=== PATIENT | male | born 1985 | race Caucasian/White ===

== ENCOUNTER → 2019-07-09 | Outpatient (CLI) | payer OTHER ==
--- NOTE | 2019-07-09 12:33 | RADIOLOGY REPORT (SQ) ---
EXAM DESCRIPTION: CT HEAD WITHOUT COMPLETED DATE/TIME: 07/09/2019 11:29 am REASON FOR STUDY: (G43.819)OTHER MIGRAINE, INTRACTABLE, WITHOUT STATUS MIGRAINOSUS G43.819 OTHER DC GRAINE, INTRACTABLE, WITHOUT STATUS MIGRAINO COMPARISON: None. TECHNIQUE: Axial images acquired through the brain without intravenous contrast. Images reviewed wi th bone, brain and subdural windows. Images stored on PACS. All CT scanners at this facility use dose modulation, iterative reconstruction, and/or weight based d osing when appropriate to reduce radiation dose to as low as reasonably achievable (ALARA). [facility]: Dose Right [facility]: CareDose [facility]: Dose Right [facility]: Teradose 4D [facility]: Pixplit RADIATION DOSE: CT Rad equipment meets quality standard of care and radiation dose reduction techniq ues were employed. CTDIvol: 48.6 mGy. DLP: 953 mGy-cm. mGy. LIMITATIONS: None. FINDINGS: VENTRICLES: Normal size and contour. CEREBRUM: There is a focal area of decreased attenuation right occipital lobe which could represent encephalomalacia. No hemorrhage. No midline shift. No evidence for acute infarction. Normal gresham/w eric matter differentiation. No areas of low density in the white matter. CEREBELLUM: No masses. No hemorrhage. No alteration of density. No evidence for acute infarction. EXTRAAXIAL SPACES: No fluid collections. No masses. ORBITS AND GLOBE: No intra- or extraconal masses. Normal contour of globe without masses. 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 PARANASAL SINUSES: Retention cyst or mucosal thickening floor both maxillary sinuses. . SOFT TISSUES: No mass or hematoma. OTHER: No other significant finding. IMPRESSION: FOCAL AREA OF ENCEPHALOMALACIA RIGHT OCCIPITAL LOBE. CHANGES OF PREVIOUS CRANIOTOMY RIG HT PARIETAL REGION WITH RADIOPAQUE TUBE OF OVER RIGHT PARIETAL CONVEXITY. OTHERWISE, NORMAL BRAIN CT WITHOUT CONTRAST. EVIDENCE OF ACUTE STROKE: NO. COMMENT: Quality ID # [id number]: Final reports with documentation of one or more dose reduction techniques (e.g., Automated exposure control, adjustment of the mA and/or kV according to patient size, use of iterative reconstruction technique) TECHNICAL DOCUMENTATION: JOB ID: [id number] SC-[id number] [employer]- All Rights Reserved Reading location - IP/workstation name: [email or web address]
== END ==
LOC: RAD 11:02
PROVIDERS: ATTEND Psychiatry & Neurology Neurology
DX: G43.819 Other migraine, intractable, without status migrainosus (principal)
CPT/HCPCS: 70450